=== PATIENT | male | born 1965 | race Caucasian/White ===

== ENCOUNTER 2023-12-15 01:02 | Emergency (ER) | payer BC ==
[~2023-12-15] VITALS: Ht 177.8 cm; Wt 102.4 kg
[2023-12-15] MEDS ORDERED: PHENYLEPHRINE 10MG/ML 1ML VIAL XX ONE (02:15)
[2023-12-15] MEDS ORDERED: NS XX ONE (02:50)
[2023-12-15] MEDS ORDERED: PHENYLEPHRINE HCL XX ONE (02:50)
[2023-12-15 03:22] VITALS: BP 148/81; TEMP 98.1; O2SAT 99
== END 2023-12-15 03:24 | disposition home or self-care (01) ==
LOC: M ED 01:02
DX: N48.33 Priapism, drug-induced (principal); Z88.8 Allergy status to other drugs, medicaments and biological substances

== ENCOUNTER → 2025-03-18 | Outpatient (CLI) | payer BC | LOC: M PLAIMG 14:25 | PROVIDERS: ATTEND Specialist | DX: G45.9 Transient cerebral ischemic attack, unspecified (principal) ==